=== PATIENT | female | born 1995 | race Caucasian/White ===

== ENCOUNTER 2020-12-21 05:59 | Emergency (ER) | payer OTHER ==
--- NOTE | 2020-12-21 06:46 | ED Physician Documentation ---
History of Present Illness - Stated complaint Stated Complaint: NAUSEA, SOA - Chief complaint Chief Complaint: Resp - History obtained from History obtained from: Patient - Additonal information Additional information: 25-year-old woman presents for evaluation of nasal congestion, sore throat, cough productive of green sputum, and subjective shortness of breath. denies fever, leg swelling, vomiting. +sick contacts (daughter). Review of Systems Constitutional: reports: Fatigue. denies: Fever Nose: reports: Rhinorrhea / runny nose, Congestion Throat: reports: Sore throat Cardiac: denies: Chest pain / pressure Respiratory: reports: Dyspnea, Cough GI: denies: Abdominal Pain, Vomiting PD PAST MEDICAL HISTORY - Past Medical History Past Medical History: Yes Cardiovascular: None Respiratory: None Neuro: None Endocrine/Autoimmune: None GI: None SALES MGR: None : None HEENT: None Psych: None Musculoskeletal: None Derm: None - Past Surgical History Past Surgical History: No - Present Medications Home Medications: Ambulatory Orders Medication Instructions Recorded Confirmed No Known Home Medications 12/21/20 12/21/20 - Allergies Allergies/Adverse Reactions: Allergies Allergy/AdvReac Type Severity Reaction Status Date / Time No Known Drug Allergies Allergy Verified 12/21/20 06:28 - Social History Does the pt smoke?: No Smoking Status: Former smoker Does the pt drink ETOH?: Yes Does the pt have substance abuse?: No - Immunizations Immunizations are current?: Yes - POLST Patient has POLST: No PD ED PE NORMAL - Vitals Vital signs reviewed: Yes - General General: Alert and oriented X 3, No acute distress, Well developed/nourished - HEENT HEENT: Atraumatic, PERRL, EOMI, Moist mucous membranes, Pharynx benign, Other (BL tender anterior cervical LAD) - Neck Neck: Supple, no meningeal sign - Cardiac Cardiac: RRR - Respiratory Respiratory: No respiratory distress, Clear bilaterally Results - Vitals Vitals: Vital Signs - 24 hr 12/21/20 06:15 Temperature 36.9 C Heart Rate 95 Respiratory 18 Rate Blood Pressure 142/91 H O2 Saturation 100 Oxygen O2 Source Room air PD MEDICAL DECISION MAKING - ED course ED course: 25-year-old woman presents with upper respiratory infection. Low likelihood of strep according to [facility] criteria of 1 (presence of a cough, age 25, no tonsillar exudate, no fever). Conservative measures discussed. Return precautions given. [place] Departure - Departure Disposition: 01 Home, Self Care Clinical Impression: Viral upper respiratory illness Condition: Good Instructions: ED Viral Syndrome Comments: You were seen in the emergency department for a viral upper respiratory infection. Drink lots of fluids, get lots of rest, and stay on until you are symptom-free. Return to the emergency department if you have any new or worsening symptoms or other concerns. Follow-up with your primary doctor. Forms: Activity restrictions
[2020-12-21 06:51] VITALS: BP 141/90
== END 2020-12-21 06:51 | disposition home or self-care (01) ==
LOC: ED 05:59
DX: J06.9 Acute upper respiratory infection, unspecified (principal); Z87.891 Personal history of nicotine dependence
CPT/HCPCS: 99281; 99282

== ENCOUNTER 2021-01-02 17:05 | Emergency (ER) | payer OTHER ==
[2021-01-02 17:14] VITALS: BP 128/89
--- NOTE | 2021-01-02 18:08 | ED Physician Documentation ---
History of Present Illness - Stated complaint Stated Complaint: HEMMORHOIDS - Chief complaint Chief Complaint: General - History obtained from History obtained from: Patient - History of Present Illness Timing: Other (10 months) Pain level max: 3 Pain level now: 1 - Additonal information Additional information: Patient is a 25-year-old female that states that after she gave to her daughter 10 months ago she has had hemorrhoids ever since. She states occasionally they start to hurt and cause bleeding. They have been more active recently. Tried [id number] medications without relief. Worse with bowel movements, nothing makes it better. She denies any constipation. Review of Systems Constitutional: denies: Fever, Chills GI: reports: Diarrhea. denies: Vomiting : denies: Now EGA Skin: denies: Rash Musculoskeletal: denies: Neck pain, Back pain Neurologic: denies: Headache PD PAST MEDICAL HISTORY - Past Medical History Cardiovascular: None Respiratory: None Neuro: None Endocrine/Autoimmune: None GI: None FORENSIC NURSE: None : None HEENT: None Psych: None Musculoskeletal: None Derm: None Other Past Medical History: hemorrhoid - Past Surgical History Past Surgical History: No - Present Medications Home Medications: Ambulatory Orders Medication Instructions Recorded Confirmed Hydrocortisone 1% Cream 28 applic MO DAILY 01/02/21 01/02/21 [Hydrocortisone] Hydrocortisone Acetate 25 mg RC BID #20 supp.rect 01/02/21 - Allergies Allergies/Adverse Reactions: Allergies Allergy/AdvReac Type Severity Reaction Status Date / Time No Known Drug Allergies Allergy Verified 01/02/21 17:13 - Social History Does the pt smoke?: No Smoking Status: Never smoker Does the pt drink ETOH?: Yes Does the pt have substance abuse?: No - Immunizations Immunizations are current?: Yes - POLST Patient has POLST: No PD ED PE NORMAL - Vitals Vital signs reviewed: Yes - General General: Alert and oriented X 3, No acute distress - Abdomen Abdomen: Soft, Non tender, Non distended - Female Female : Other (Small external hemorrhoid, nonthrombosed. Mild pink in color. No active bleeding. No fissures or lacerations.) - Derm Derm: Warm and dry - Neuro Neuro: Alert and oriented X 3 Results - Vitals Vitals: Vital Signs - 24 hr 01/02/21 17:11 Temperature 36.9 C Heart Rate 89 Respiratory 16 Rate Blood Pressure 128/89 H O2 Saturation 100 Oxygen O2 Source Room air PD MEDICAL DECISION MAKING - ED course Complexity details: considered differential, d/w patient ED course: 25-year-old female with hemorrhoids. We will place on hydrocortisone suppositories and see if this helps her symptoms. She will follow up with general surgery to discuss removal. Patient counseled regarding signs and symptoms for which I believe and urgent re-evaluation would be necessary. Patient with good understanding of and agreement to plan and is comfortable going home at this time This document was made in part using voice recognition software. While efforts are made to proofread this document, sound alike and grammatical errors may occur. No thrombosed hemorrhoid currently. No active bleeding currently. Departure - Departure Disposition: 01 Home, Self Care Clinical Impression: Hemorrhoids Qualifiers: Hemorrhoid type: unspecified Qualified Code(s): K64.9 - Unspecified hemorrhoids Condition: Good Instructions: ED Hemorrhoids Follow-Up: Miguelangel Tinsley MD [Provider Admit Priv/Credential] - Kinjal Dexter MD [Provider Admit Priv/Credential] - Prescriptions: Hydrocortisone Acetate 25 mg RC BID #20 supp.rect Comments: We will trial you on hydrocortisone suppositories to see if these work better for you. You can follow-up with a general surgeon to discuss removal of the hemorrhoid. They are not thrombosed today. Return for persistent pain or heavy bleeding. Discharge Date/Time: 01/02/21 18:33
== END 2021-01-02 18:33 | disposition home or self-care (01) ==
LOC: ED 17:05
DX: K64.9 Unspecified hemorrhoids (principal)
CPT/HCPCS: 99282; 99284

== ENCOUNTER 2021-06-25 22:47 | Emergency (ER) | payer OTHER ==
[2021-06-25] MEDS: ACETAMINOPHEN 325 MG TABLET PO STA (23:20)
[2021-06-25] MEDS: LIDOCAINE OINTMENT 5% 35.44 GM TUBE TOP STA (23:20)
[2021-06-25] MEDS: IBUPROFEN 400 MG TABLET PO STA (23:20)
[2021-06-25] MEDS: oxyCODONE 5 MG TABLET PO STA (23:20)
--- NOTE | 2021-06-25 23:22 | ED Physician Documentation ---
History of Present Illness - Stated complaint Stated Complaint: FEMALE - Chief complaint Chief Complaint: General - History obtained from History obtained from: Patient - Additonal information Additional information: 25yF with pmh hemorrhoids p/w anorectal pain after having anal intercourse with her this evening. she went to bathroom and attempted to empty her bowels but was unable to, and also was experiencing 9/10 constant pain localized to rectal area that is nonradiating, persistent here in the ED. patient endorses chronic small streaks of blood with bowel movements after since getting hemorrhoids after giving , but states they are nonworsening. Review of Systems GI: reports: Other (blood streaked stool) Skin: reports: Other (hemorrhoids) PD PAST MEDICAL HISTORY - Past Medical History Cardiovascular: None Respiratory: None Neuro: None Endocrine/Autoimmune: None GI: None [employer]: None : None HEENT: None Psych: None Musculoskeletal: None Derm: None - Past Surgical History Past Surgical History: No - Present Medications Home Medications: Ambulatory Orders Medication Instructions Recorded Confirmed Hydrocortisone 1% Cream 28 applic [place] DAILY 01/02/21 01/02/21 [Hydrocortisone] Hydrocortisone Acetate 25 mg RC BID #20 supp.rect 01/02/21 Benzocaine [Boil Relief] 1 appful TP Q4H PRN #1 bottle 06/25/21 - Allergies Allergies/Adverse Reactions: Allergies Allergy/AdvReac Type Severity Reaction Status Date / Time No Known Drug Allergies Allergy Verified 06/25/21 22:49 - Social History Does the pt smoke?: No Smoking Status: Never smoker Does the pt drink ETOH?: Yes Does the pt have substance abuse?: No - Immunizations Immunizations are current?: Yes - POLST Patient has POLST: No PD ED PE NORMAL - Vitals Vital signs reviewed: Yes - General General: Alert and oriented X 3, No acute distress, Well developed/nourished - HEENT HEENT: Atraumatic, PERRL, EOMI - Abdomen Abdomen: Non tender, Non distended - Rectal Rectal: Other (two small nonthrombosed external hemorrhoids. palpable internal hemorrhoids. KAYLI without blood in the rectal vault. [employer] Dyer DANYELLE Simms) - Neuro Neuro: Alert and oriented X 3 - Psych Psych: Normal mood, Normal affect Results - Vitals Vitals: Vital Signs - 24 hr 06/25/21 22:50 Temperature 36.5 C Heart Rate 70 Respiratory 16 Rate Blood Pressure 137/98 H O2 Saturation 99 Oxygen O2 Source Room air PD MEDICAL DECISION MAKING - ED course ED course: 25yF p/w hemorrhoid pain after anal intercourse this evening. on exam, nonthrombosed internal/ext hemorrhoids seen. symptomatic care and counseling provided. patient will f/u with her pmd and with surgeon referral that was provided on a prior visit. return precautions given. Departure - Departure Disposition: Home, Self Care Clinical Impression: Hemorrhoids Condition: Stable Instructions: ED Hemorrhoids, Sitz Bath Prescriptions: Benzocaine [Boil Relief] 1 appful TP Q4H PRN #1 bottle PRN Reason: Pain Comments: You were seen in the ED for evaluation of hemorrhoids. You should follow up with your primary provider to discuss changes to help prevent hemorrhoids in future. You also should follow up with a surgeon for evaluation since you have had symptoms longer than 6 to 8 weeks and the anusol ointment didn't fix the problem. Return to the ED if you have new or worsening symptoms or other concerns. Forms: Activity restrictions
[2021-06-25 23:41] VITALS: BP 133/87
== END 2021-06-25 23:40 | disposition home or self-care (01) ==
LOC: ED 22:47
DX: K64.8 Other hemorrhoids (principal); K64.4 Residual hemorrhoidal skin tags
CPT/HCPCS: 99282; 99283; A9270